=== PATIENT | male | born 1950 | race Caucasian/White ===

== ENCOUNTER 2016-06-26 04:30 | Inpatient (IN) | payer BC ==
[2016-06-25 14:45] LABS: HEMOGLOBIN 16.9 g/dL (13.7-18.0)
[2016-06-25 14:51] LABS: ASPARTATE AMINO TRANSFERASE 26 U/L (15-37); BLOOD UREA NITROGEN 21 mg/dL (7-18)
[~2016-06-26] VITALS: Ht 170.2 cm; Wt 80.2 kg
[2016-06-26] VITALS (9 sets, daily range): BP systolic 96–145; BP diastolic 47–90
[~2016-06-26 04:30] MED LIST: ATOR20TA9 PO; CARV40CP PO; CHLO25TA PO; LOSA50TA6 PO; TAMS0.4C2 PO
[2016-06-26] MEDS ORDERED: ALBUMIN HUMAN 5% 500 ML IV ONE (05:00)
[2016-06-26] MEDS ORDERED: CHLORHEXIDINE MOUTHWASH 15 ML UDC MM SCH (05:00)
[2016-06-26] MEDS ORDERED: DO NOT GIVE MC SCH (05:00)
[2016-06-26] MEDS: MUPIROCIN OINT 2%, 22GM TP SCH ×2 (05:38→21:00)
[2016-06-26] MEDS: INSULIN ASPART 100 UNITS/ML, PEN SQ-INSULIN SCH (05:38)
[2016-06-26] MEDS ORDERED: FENTANYL PF 1000 MCG/20ML ONE (06:20)
[2016-06-26] MEDS ORDERED: MIDAZOLAM 10MG/2 ML ONE (06:21)
[2016-06-26] MEDS ORDERED: POTASSIUM CHLORIDE 80 MEQ, SODIUM BICARBONATE 8.4% 10 MEQ, MAGNESIUM SULFATE 0.5 GM, LI... IV PRN (07:30)
[2016-06-26] MEDS ORDERED: PHENYLEPHRINE 10 MG in SODIUM CHLORIDE 0.9% 249 ML IV PRN (07:30)
[2016-06-26] MEDS ORDERED: MANNITOL PMX 20% 500 ML IVPB PRN (07:30)
[2016-06-26] MEDS ORDERED: EPINEPHRINE 2 MG in SODIUM CHLORIDE 0.9% 248 ML IV SCH (07:30)
[2016-06-26] MEDS ORDERED: REGULAR INSULIN 62.5 UNITS in SODIUM CHLORIDE 0.9% 249.375 ML IV PRN ×2 (07:30→10:08)
[2016-06-26] MEDS ORDERED: VANCOMYCIN 1,200 MG in SODIUM CHLORIDE 0.9% 250 ML IV PRN (07:30)
[2016-06-26] MEDS ORDERED: CEFUROXIME 1.5 GM in SODIUM CHLORIDE 0.9% 50 ML IVPB PRN (07:30)
[2016-06-26] MEDS ORDERED: DEXMEDETOMIDINE 200 MCG in SODIUM CHLORIDE 0.9% 48 ML IV SCH (07:30)
[2016-06-26] MEDS ORDERED: PROTAMINE SULFATE 10 MG/ML, 25ML ONE ×3 (09:00→14:29)
[2016-06-26] MEDS ORDERED: AMINOCAPROIC ACID 250 MG/ML, 20ML ONE ×2 (09:00)
[2016-06-26] MEDS ORDERED: CALCIUM CHLORIDE 10%, 10ML SYR ONE (09:01)
[2016-06-26] MEDS ORDERED: MAGNESIUM SULFATE PMX 2GM/50ML 0 ML ONE (09:18)
[2016-06-26] MEDS ORDERED: MAGNESIUM SULFATE PMX 4GM/100M 0 ML ONE (09:19)
[2016-06-26] MEDS ORDERED: VASOPRESSIN 20 UNIT/ML, 1ML ONE (09:43)
[2016-06-26] MEDS ORDERED: DOBUTAMINE 250 MG in SODIUM CHLORIDE 0.9% 230 ML IV PRN (10:08)
[2016-06-26] MEDS ORDERED: SODIUM CHLORIDE 0.9% 1,000 ML IV PRN (10:08)
[2016-06-26] MEDS ORDERED: EPINEPHRINE 2 MG in SODIUM CHLORIDE 0.9% 248 ML IV PRN (10:30)
[2016-06-26] MEDS ORDERED: BISACODYL 10 MG SUPP PR PRN (10:30)
[2016-06-26] MEDS ORDERED: DEXTROSE 4 GM TAB.CHEW PO PRN (10:30)
[2016-06-26] MEDS ORDERED: MEPERIDINE/PF 25MG/0.5ML IVPush PRN (10:30)
[2016-06-26] MEDS ORDERED: DEXTROSE 50%, 50ML SYRINGE IVPush PRN (10:30)
[2016-06-26] MEDS ORDERED: GLUCAGON 1 MG IM PRN (10:30)
[2016-06-26] MEDS ORDERED: LACTATED RINGERS 500 ML IV PRN (10:30)
[2016-06-26] MEDS ORDERED: ACETAMINOPHEN 650 MG SUPP PR PRN (10:30)
[2016-06-26] MEDS ORDERED: BISACODYL 5 MG EC TABLET PO PRN (10:30)
[2016-06-26] MEDS ORDERED: ACETAMINOPHEN 325 MG TABLET PO PRN (10:30)
[2016-06-26] MEDS ORDERED: SODIUM BICARB 8.4%, 50ML SYRINGE IV PRN (10:30)
[2016-06-26] MEDS ORDERED: MIDAZOLAM 1 MG/ML, 5ML IVPush PRN (10:30)
[2016-06-26] MEDS ORDERED: LIDOCAINE 2% 100MG/5ML SYRINGE ONE (10:34)
[2016-06-26] MEDS ORDERED: HEPARIN 1,000 UNITS/ML, 30ML ONE ×2 (10:36→14:29)
[2016-06-26] MEDS ORDERED: methylPREDNISolone SOD SUCC 125 MG/2 ML ONE (10:37)
[2016-06-26] MEDS ORDERED: SODIUM BICARBONATE 1 MEQ/ML, 50ML VIAL ONE (10:37)
[2016-06-26 10:39] LABS: ABG COLLECTION SITE ARTERIAL LINE
[2016-06-26 10:40] LABS: FIO2 70 %
[2016-06-26] MEDS ORDERED: SODIUM BICARB 8.4%, 50ML SYRINGE ONE (10:41)
[2016-06-26] MEDS ORDERED: CALCIUM CHLORIDE 13.6 MEQ in SODIUM CHLORIDE 0.9% 100 ML IV ONE ×2 (11:00→12:00)
[2016-06-26] MEDS: MAGNESIUM SULFATE 1 GM in SODIUM CHLORIDE 0.9% 50 ML IVPB SCH (11:08)
[2016-06-26] MEDS ORDERED: NOVOSEVEN RT (FACTOR VIIA) RECOMB 1,000 MCG IVPush ONE ×2 (11:30→12:00)
[2016-06-26] MEDS ORDERED: FENTANYL PF 100 MCG/2ML ONE (11:32)
[2016-06-26] MEDS: CLEVIDIPINE 50 ML IV PRN ×2 (12:00→20:22)
[2016-06-26] MEDS ORDERED: MORPHINE SULFATE 4 MG/ML, 1ML ONE ×2 (12:01→16:18)
[2016-06-26] MEDS ORDERED: DIPHENHYDRAMINE 50 MG/ML, 1ML ONE (12:18)
[2016-06-26] MEDS ORDERED: DIPHENHYDRAMINE 50 MG/ML, 1ML IVPush ONE (12:30)
[2016-06-26] MEDS ORDERED: methylPREDNISolone SOD SUCC 40 MG/ML IV STA (12:30)
[2016-06-26] MEDS ORDERED: methylPREDNISolone SOD SUCC 125 MG/2 ML IV STA (12:31)
[2016-06-26] MEDS: SODIUM CHLORIDE FLUSH 10ML SYR IVF SCH ×3 (12:40→21:31)
[2016-06-26 12:42] LABS: HEMOGLOBIN 10.8 g/dL (13.7-18.0)
[2016-06-26] MEDS: morphine SULFATE 10 MG/ML, 1ML IVPush PRN ×3 (12:57→22:32)
[2016-06-26 13:13] LABS: DIFF TOTAL CELLS COUNTED 100 CELL DIFF
[2016-06-26 13:14] LABS: VERIFY COUNTS? YES
[2016-06-26] MEDS: KSCALE TO 4.5 IV SCH ×2 (13:17→21:00)
[2016-06-26] MEDS ORDERED: FENTANYL PF 250 MCG/5ML ONE (13:17)
[2016-06-26] MEDS: WARFARIN MODERAT DOSE PROTOCOL XX SCH (13:17)
[2016-06-26] MEDS ORDERED: ALBUMIN HUMAN IV ONE (13:30)
[2016-06-26] MEDS ORDERED: POTASSIUM CHLORIDE PMX 100 ML IV ONE ×2 (13:30→21:30)
[2016-06-26] MEDS: DEXMEDETOMIDINE 200 MCG in SODIUM CHLORIDE 0.9% 48 ML IV PRN ×2 (13:45→16:05)
[2016-06-26 14:49] LABS: ABG COLLECTION SITE ARTERIAL LINE
[2016-06-26] MEDS ORDERED: PROPOFOL 10 MG/ML, 20ML ONE (16:31)
[2016-06-26] MEDS ORDERED: ROCURONIUM 10 MG/ML ONE ×2 (16:31→16:32)
[2016-06-26] MEDS: CEFUROXIME 1.5 GM in SODIUM CHLORIDE 0.9% 50 ML IVPB SCH (17:46)
[2016-06-26] MEDS: VANCOMYCIN 1,200 MG in SODIUM CHLORIDE 0.9% 250 ML IVPB SCH (19:35)
[2016-06-26 19:41] LABS: HEMOGLOBIN 10.3 g/dL (13.7-18.0)
[2016-06-26] MEDS: HYDROcodone/APAP 10/325 MG TABLET PO PRN (20:15)
[2016-06-26] MEDS: MUPIROCIN OINT 2%, 22GM NAS SCH (21:31)
[2016-06-26] MEDS: DOCUSATE 100 MG CAPSULE PO SCH (21:31)
[2016-06-26] MEDS: OXYcodone IR 5MG TABLET PO PRN (21:49)
[2016-06-26] MEDS: INSULIN ASPART 100 UNITS/ML, PEN SQ-INSULIN PRN ×2 (22:40→23:38)
[2016-06-27] MEDS: HYDROcodone/APAP 10/325 MG TABLET PO PRN ×3 (00:23→08:01)
[2016-06-27] MEDS: INSULIN ASPART 100 UNITS/ML, PEN SQ-INSULIN PRN ×2 (00:25→16:25)
[2016-06-27] MEDS: OXYcodone IR 5MG TABLET PO PRN ×3 (01:32→16:10)
[2016-06-27 02:48] LABS: HEMOGLOBIN 9.4 g/dL (13.7-18.0)
[2016-06-27 02:51] LABS: ABG COLLECTION SITE ARTERIAL LINE
[2016-06-27] MEDS: KSCALE TO 4.5 IV SCH (03:00)
[2016-06-27 03:05] LABS: BLOOD UREA NITROGEN 18 mg/dL (7-18)
[2016-06-27] MEDS ORDERED: POTASSIUM CHLORIDE PMX 100 ML IV ONE (04:00)
[2016-06-27 04:04] VITALS: BP 110/63
[2016-06-27] MEDS: VANCOMYCIN 1,200 MG in SODIUM CHLORIDE 0.9% 250 ML IVPB SCH (05:32)
[2016-06-27] MEDS: CEFUROXIME 1.5 GM in SODIUM CHLORIDE 0.9% 50 ML IVPB SCH (06:35)
[2016-06-27] MEDS ORDERED: MAGNESIUM HYDROXIDE 8%, 30ML UDC PO PRN (07:30)
[2016-06-27] MEDS: MUPIROCIN OINT 2%, 22GM NAS SCH ×2 (07:52→20:02)
[2016-06-27] MEDS: ASPIRIN 81 MG TABLET EC PO SCH (07:52)
[2016-06-27] MEDS: DOCUSATE 100 MG CAPSULE PO SCH ×2 (07:52→20:03)
[2016-06-27] MEDS: CHLORHEXIDINE MOUTHWASH 15 ML UDC MM SCH ×2 (07:53→20:03)
[2016-06-27] MEDS: POTASSIUM CHLORIDE 20 MEQ TAB.ER.PRT PO SCH (08:00)
[2016-06-27 08:17] LABS: HEMOGLOBIN 9.8 g/dL (13.7-18.0)
[2016-06-27] MEDS: TAMSULOSIN 0.4 MG CAP.ER.24H PO SCH (09:00)
[2016-06-27] MEDS: MUPIROCIN OINT 2%, 22GM TP SCH ×2 (09:00→20:02)
[2016-06-27] MEDS ORDERED: PANTOPRAZOLE 40 MG IV IVPush SCH (09:00)
[2016-06-27] MEDS: KETOROLAC 30 MG/1 ML IVPush PRN ×2 (09:00→20:06)
[2016-06-27] MEDS: SODIUM CHLORIDE FLUSH 10ML SYR IVF SCH ×5 (09:00→20:01)
[2016-06-27] MEDS: FUROSEMIDE 40 MG/4 ML IV SCH (09:00)
[2016-06-27] MEDS: WARFARIN MODERAT DOSE PROTOCOL XX SCH (09:58)
[2016-06-27] MEDS: MAGNESIUM SULFATE 1 GM in SODIUM CHLORIDE 0.9% 50 ML IVPB SCH (11:13)
[2016-06-27] MEDS: INSULIN ASPART 100 UNITS/ML, PEN SQ-INSULIN SCH ×2 (11:41→20:06)
[2016-06-27] MEDS: ONDANSETRON 2MG/ML, 2ML IVPush PRN (12:15)
[2016-06-27] MEDS: PROCHLORPERAZINE 5 MG/ML, 2ML IVPush PRN (12:56)
[2016-06-27] MEDS ORDERED: PNEUMOCOCCAL 23 VACCINE IM-VACC ONE (13:30)
[2016-06-27 14:47] VITALS: BP 108/55
[2016-06-27] MEDS ORDERED: WARFARIN 7.5 MG TABLET PO-COUM ONE (18:00)
[2016-06-27 19:54] VITALS: BP 114/58
[2016-06-27] MEDS: ATORVASTATIN 20 MG TABLET PO SCH (20:03)
[2016-06-28 00:48] VITALS: BP 105/62
[2016-06-28] MEDS: HYDROcodone/APAP 10/325 MG TABLET PO PRN ×2 (01:20→08:25)
[2016-06-28] MEDS: ONDANSETRON 2MG/ML, 2ML IVPush PRN ×2 (01:20→13:00)
[2016-06-28 04:35] LABS: HEMOGLOBIN 8.5 g/dL (13.7-18.0)
[2016-06-28 04:44] LABS: BLOOD UREA NITROGEN 24 mg/dL (7-18)
[2016-06-28] MEDS: KETOROLAC 30 MG/1 ML IVPush PRN (06:18)
[2016-06-28 06:35] VITALS: BP 120/69
[2016-06-28] MEDS: POTASSIUM CHLORIDE 20 MEQ TAB.ER.PRT PO SCH (08:21)
[2016-06-28] MEDS: SODIUM CHLORIDE FLUSH 10ML SYR IVF SCH ×6 (08:22→20:05)
[2016-06-28] MEDS: FUROSEMIDE 40 MG/4 ML IV SCH (08:22)
[2016-06-28] MEDS: DOCUSATE 100 MG CAPSULE PO SCH ×2 (08:22→20:05)
[2016-06-28] MEDS: TAMSULOSIN 0.4 MG CAP.ER.24H PO SCH (08:22)
[2016-06-28] MEDS: MUPIROCIN OINT 2%, 22GM NAS SCH ×2 (08:22→20:05)
[2016-06-28] MEDS: ASPIRIN 81 MG TABLET EC PO SCH (08:22)
[2016-06-28] MEDS: CHLORHEXIDINE MOUTHWASH 15 ML UDC MM SCH ×2 (08:23→20:04)
[2016-06-28] MEDS: MUPIROCIN OINT 2%, 22GM TP SCH ×2 (08:23→20:06)
[2016-06-28] MEDS: PROCHLORPERAZINE 5 MG/ML, 2ML IVPush PRN (08:25)
[2016-06-28] MEDS: INSULIN ASPART 100 UNITS/ML, PEN SQ-INSULIN PRN ×2 (08:28→20:04)
[2016-06-28] MEDS: MAGNESIUM SULFATE 1 GM in SODIUM CHLORIDE 0.9% 50 ML IVPB SCH (11:30)
[2016-06-28] MEDS: WARFARIN MODERAT DOSE PROTOCOL XX SCH (11:48)
[2016-06-28 12:49] VITALS: BP 110/62
[2016-06-28] MEDS ORDERED: WARFARIN 7.5 MG TABLET PO-COUM ONE (18:00)
[2016-06-28 19:17] VITALS: BP 132/69
[2016-06-28] MEDS: ATORVASTATIN 20 MG TABLET PO SCH (20:04)
[2016-06-29] MEDS: HYDROcodone/APAP 10/325 MG TABLET PO PRN ×2 (00:07→06:07)
[2016-06-29] MEDS: ONDANSETRON 2MG/ML, 2ML IVPush PRN ×3 (00:07→12:01)
[2016-06-29 02:00] VITALS: BP 136/75
[2016-06-29 05:45] LABS: BLOOD UREA NITROGEN 21 mg/dL (7-18)
[2016-06-29 07:42] VITALS: BP 141/71
[2016-06-29] MEDS: TAMSULOSIN 0.4 MG CAP.ER.24H PO SCH (08:11)
[2016-06-29] MEDS: ASPIRIN 81 MG TABLET EC PO SCH (08:11)
[2016-06-29] MEDS: DOCUSATE 100 MG CAPSULE PO SCH ×2 (08:12→20:37)
[2016-06-29] MEDS: FUROSEMIDE 40 MG/4 ML IV SCH (08:12)
[2016-06-29] MEDS: CARVEDILOL 3.125 MG TABLET PO SCH ×2 (08:13→18:03)
[2016-06-29] MEDS: SODIUM CHLORIDE FLUSH 10ML SYR IVF SCH ×2 (08:27→20:37)
[2016-06-29] MEDS: MUPIROCIN OINT 2%, 22GM NAS SCH ×2 (08:27→20:38)
[2016-06-29] MEDS: MUPIROCIN OINT 2%, 22GM TP SCH ×2 (08:28→20:37)
[2016-06-29] MEDS: WARFARIN MODERAT DOSE PROTOCOL XX SCH (12:00)
[2016-06-29] MEDS: POTASSIUM CHLORIDE 20 MEQ TAB.ER.PRT PO SCH (12:01)
[2016-06-29 13:29] VITALS: BP 145/76
[2016-06-29] MEDS ORDERED: METOCLOPRAMIDE 5 MG/ML, 2ML IVPush ONE (15:30)
[2016-06-29] MEDS ORDERED: WARFARIN 7.5 MG TABLET PO-COUM ONE (18:00)
[2016-06-29 19:49] VITALS: BP 130/70
[2016-06-29] MEDS: ATORVASTATIN 20 MG TABLET PO SCH (20:38)
[2016-06-30 03:12] VITALS: BP 130/68
[2016-06-30 06:39] LABS: BLOOD UREA NITROGEN 16 mg/dL (7-18)
[2016-06-30 07:08] VITALS: BP 120/68
[2016-06-30] MEDS: WARFARIN MODERAT DOSE PROTOCOL XX SCH (07:53)
[2016-06-30] MEDS: CARVEDILOL 3.125 MG TABLET PO SCH ×2 (08:58→16:49)
[2016-06-30] MEDS: TAMSULOSIN 0.4 MG CAP.ER.24H PO SCH (08:58)
[2016-06-30] MEDS: ASPIRIN 81 MG TABLET EC PO SCH (08:58)
[2016-06-30] MEDS: DOCUSATE 100 MG CAPSULE PO SCH (08:58)
[2016-06-30] MEDS: MUPIROCIN OINT 2%, 22GM NAS SCH (08:58)
[2016-06-30] MEDS: MUPIROCIN OINT 2%, 22GM TP SCH (08:58)
[2016-06-30] MEDS: SODIUM CHLORIDE FLUSH 10ML SYR IVF SCH (08:59)
[2016-06-30] MEDS ORDERED: LOSARTAN 25MG TABLET PO SCH (09:00)
[2016-06-30] MEDS ORDERED: POTASSIUM CHLORIDE 10% 40 MEQ/30 ML UDC PO ONE (09:30)
[2016-06-30] MEDS ORDERED: ASPI-621 PO (09:36)
[2016-06-30] MEDS ORDERED: LOSA25TA2 PO (09:36)
[2016-06-30] MEDS ORDERED: DOCU-30 PO (09:36)
[2016-06-30] MEDS ORDERED: CARV3.1212 PO (09:36)
[2016-06-30] MEDS ORDERED: ALPR0.254 PO (09:36)
[2016-06-30] MEDS ORDERED: WARF7.5T6 PO (09:36)
[2016-06-30] MEDS ORDERED: HYDR-3307 PO (14:38)
[2016-06-30] MEDS ORDERED: ONDA4TAB10 PO (14:39)
[2016-06-30 16:11] VITALS: BP 107/68
== END 2016-06-30 17:30 | disposition home health service (06) | DRG 220 ==
LOC: 5SO 04:30 → CSU 07:44 → 5SO 06-27 14:20
PROVIDERS: ADMIT Thoracic Surgery (Cardiothoracic Vascular Surgery); ATTEND Thoracic Surgery (Cardiothoracic Vascular Surgery)
PROC: 0T9B70Z Drainage of Bladder with Drainage Device, Via Natural or Artificial Opening (ICD-10-PCS; 2016-06-25)
PROC: 02RX0JZ Replacement of Thoracic Aorta, Ascending/Arch with Synthetic Substitute, Open Approach (ICD-10-PCS; 2016-06-26)
PROC: 5A1221Z Performance of Cardiac Output, Continuous (ICD-10-PCS; 2016-06-26)
PROC: B246ZZ4 Ultrasonography of Right and Left Heart, Transesophageal (ICD-10-PCS; 2016-06-26)
PROC: 0W9D0ZZ Drainage of Pericardial Cavity, Open Approach (ICD-10-PCS; 2016-06-26)
PROC: 30233L1 Transfusion of Nonautologous Fresh Plasma into Peripheral Vein, Percutaneous Approach (ICD-10-PCS; 2016-06-26)
PROC: 30233N1 Transfusion of Nonautologous Red Blood Cells into Peripheral Vein, Percutaneous Approach (ICD-10-PCS; 2016-06-26)
PROC: 30233R1 Transfusion of Nonautologous Platelets into Peripheral Vein, Percutaneous Approach (ICD-10-PCS; 2016-06-26)
PROC: 30233M1 Transfusion of Nonautologous Plasma Cryoprecipitate into Peripheral Vein, Percutaneous Approach (ICD-10-PCS; 2016-06-26)
PROC: 30233K1 Transfusion of Nonautologous Frozen Plasma into Peripheral Vein, Percutaneous Approach (ICD-10-PCS; 2016-06-26)
PROC: 0W380ZZ Control Bleeding in Chest Wall, Open Approach (ICD-10-PCS; 2016-06-26)
PROC: 02RF08Z Replacement of Aortic Valve with Zooplastic Tissue, Open Approach (ICD-10-PCS; principal; 2016-06-26 07:30)
DX: Q23.1 Congenital insufficiency of aortic valve (principal); I50.32 Chronic diastolic (congestive) heart failure; I11.0 Hypertensive heart disease with heart failure; I27.2 Other secondary pulmonary hypertension; I71.2 Thoracic aortic aneurysm, without rupture; E78.5 Hyperlipidemia, unspecified; K21.9 Gastro-esophageal reflux disease without esophagitis; N40.0 Benign prostatic hyperplasia without lower urinary tract symptoms; Z96.641 Presence of right artificial hip joint; Z82.49 Family history of ischemic heart disease and other diseases of the circulatory system; Z86.73 Personal history of transient ischemic attack (TIA), and cerebral infarction without residual deficits; Z86.79 Personal history of other diseases of the circulatory system; Z89.512 Acquired absence of left leg below knee; Z72.89 Other problems related to lifestyle; Z88.2 Allergy status to sulfonamides; Z88.8 Allergy status to other drugs, medicaments and biological substances
CPT/HCPCS: 36415; 36600; 71010; 71020; 80048; 80053; 81003; 82040; 82330; 82800; 82803; 82810; 82947; 82962; 83036; 83735; 84132; 84295; 85014; 85018; 85025; 85049; 85347; 85384; 85610; 85730; 86850; 86900; 86923; 87081; 88304; 88305; 88311; 93005; 93312; 93321; 93325; 93880; 94002; 94150; J0697; J1644; J1815; J1885; J1940; J2250; J2405; J2704; J2720; J3010; J3370; J3475; J3480; J3490; J7120; J7189; P9045; C1760; C1763; C9248; J0171; J0780; J1200; J2270; J2370; J2765; J2930; J7030; J7050; P9012; P9016; P9017; P9035